=== PATIENT | female | born 1945 | race Caucasian/White ===

== ENCOUNTER 2017-11-29 20:26 | Inpatient (IN) | payer BC ==
[~2017-11-29] VITALS: Ht 157.5 cm; Wt 44.5 kg
[2017-11-30] MEDS ORDERED: BUPROPION XL300 MG ORAL (03:46)
[2017-11-30] MEDS ORDERED: TRAMADOL HCL50 MG ORAL (03:46)
[2017-11-30] MEDS ORDERED: LISINOPRIL40 MG ORAL (03:46)
[2017-11-30] MEDS ORDERED: ZOCOR20 MG ORAL (03:46)
[2017-11-30] MEDS ORDERED: ASPIRIN81 MG ORAL (03:46)
[2017-11-30] MEDS ORDERED: NORMODYNE100 MG ORAL (03:46)
[2017-11-30] MEDS ORDERED: CLONAZEPAM1 MG PO (03:46)
[2017-11-30] MEDS ORDERED: VESICARE5 MG ORAL (03:46)
[2017-11-30 04:00] VITALS: BP 119/66
[2017-11-30] MEDS ORDERED: traMADol 50mg tab ORAL PRN (04:45)
[2017-11-30 07:46] LABS: BASOPHILS % (AUTO) 0.9 % (0.0-2.0); EOSINOPHILS % (AUTO) 2.8 % (0.0-3.0); HEMATOCRIT 33.5 % (37.0-47.0); HEMOGLOBIN 11.5 G/DL (12.0-16.0); LYMPHOCYTES % (AUTO) 21.7 % (20.0-45.0); MEAN CORPUSCULAR VOLUME 89 FL (80-99); MONOCYTES % (AUTO) 12.1 % (1.0-10.0); NEUTROPHILS % (AUTO) 62.5 % (45.0-75.0); PLATELET COUNT 217 K/UL (150-450); RED BLOOD COUNT 3.74 M/UL (4.20-5.40); RED CELL DISTRIBUTION WIDTH 12.1 % (11.6-14.8); WHITE BLOOD COUNT 4.6 K/UL (4.8-10.8)
[2017-11-30 08:00] VITALS: BP 107/65
[2017-11-30 08:13] LABS: ALANINE AMINOTRANSFERASE 25 U/L (12-78); ALBUMIN 3.4 G/DL (3.4-5.0); ALBUMIN/GLOBULIN RATIO 1.2 (1.0-2.7); ALKALINE PHOSPHATASE 46 U/L (46-116); ANION GAP 6 mmol/L (5-15); ASPARTATE AMINO TRANSFERASE 21 U/L (15-37); BILIRUBIN,TOTAL 0.2 MG/DL (0.2-1.0); BLOOD UREA NITROGEN 12 mg/dL (7-18); CALCIUM 8.5 MG/DL (8.5-10.1); CARBON DIOXIDE 26 MMOL/L (21-32); CHLORIDE 101 MMOL/L (98-107); CHOLESTEROL 155 MG/DL (< 200); CREATININE 0.8 MG/DL (0.55-1.30); HDL CHOLESTEROL 81 MG/DL (40-60); POTASSIUM 3.7 MMOL/L (3.5-5.1); SODIUM 133 MMOL/L (136-145); TRIGLYCERIDES 21 MG/DL (30-150)
[2017-11-30 08:14] LABS: PHOSPHORUS 3.2 MG/DL (2.5-4.9)
[2017-11-30] MEDS: Aspirin Baby 81mg ORAL SCH (08:19)
[2017-11-30] MEDS: BuPROPion XL 300mg tab ORAL SCH (08:19)
[2017-11-30] MEDS ORDERED: Lisinopril 20mg tab ORAL SCH (09:00)
--- NOTE | 2017-11-30 10:22 | Consultation ---
History of Present Illness General Date patient seen: Nov 30, 2017 Reason for Consultation: inpatient management Present Illness HPI 72 year old female with hx of HTN, depression was taken to [facility] with CC of dizziness and presyncopal episode. She had a negative Ct of head [place] [facility] and [place] [facility] Pt is awake and asymptomatic now and remembers exactly what happened to her. Allergies: Coded Allergies: MORPHINE (Verified Allergy, Unknown, 11/30/17) Medication History Scheduled Aspirin* (Aspirin*), 81 MG ORAL DAILY, (Reported) Bupropion Hcl* (Wellbutrin*), 300 MG ORAL DAILY, (Reported) Labetalol HCl (Labetalol HCl), 100 MG ORAL EVERY 12 HOURS, (Reported) Lisinopril* (Lisinopril*), 40 MG ORAL DAILY, (Reported) Simvastatin (Zocor), 20 MG ORAL BEDTIME, (Reported) Solifenacin Succinate* (Vesicare*), 5 MG ORAL DAILY, (Reported) Scheduled PRN Tramadol Hcl* (Ultram*), 50 MG ORAL Q6H PRN for For Pain, (Reported) Miscellaneous Medications Clonazepam (Clonazepam), 1 MG PO, (Reported) Patient History Healthcare decision maker Daughter Shaniqua Resuscitation status Full Code Advanced Directive on File No Past Medical/Surgical History Past Medical/Surgical History: (1) Depression (2) History of hypertension Review of Systems All Other Systems: negative except mentioned in HPI Physical Exam General Appearance: WD/WN Lines, tubes and drains: peripheral HEENT: normocephalic Neck: non-tender, normal alignment, limited range of motion Respiratory/Chest: chest wall non-tender, lungs clear Cardiovascular/Chest: normal peripheral pulses, normal rate Abdomen: normal bowel sounds, non tender Genitourinary/Rectal: normal genital exam Extremities: normal range of motion Last 24 Hour Vital Signs Date Time Temp Pulse Resp B/P (MAP) Pulse Ox O2 Delivery O2 Flow Rate FiO2 11/30/17 08:19 107/65 11/30/17 08:19 73 107/65 11/30/17 08:00 98.8 73 18 107/65 (79) 96 98.8 11/30/17 04:00 68 11/30/17 04:00 97.7 62 20 119/66 (83) 95 97.7 11/30/17 02:49 Room Air Intake and Output 11/29/17 11/30/17 19:00 07:00 # Voids 3 Laboratory Tests Test 11/30/17 07:05 White Blood Count 4.6 K/UL (4.8-10.8) L Red Blood Count 3.74 M/UL (4.20-5.40) L Hemoglobin 11.5 G/DL (12.0-16.0) L Hematocrit 33.5 % (37.0-47.0) L Mean Corpuscular Volume 89 FL (80-99) Mean Corpuscular Hemoglobin 30.7 PG (27.0-31.0) Mean Corpuscular Hemoglobin Concent 34.3 G/DL (32.0-36.0) Red Cell Distribution Width 12.1 % (11.6-14.8) Platelet Count 217 K/UL (150-450) Mean Platelet Volume 7.1 FL (6.5-10.1) Neutrophils (%) (Auto) 62.5 % (45.0-75.0) Lymphocytes (%) (Auto) 21.7 % (20.0-45.0) Monocytes (%) (Auto) 12.1 % (1.0-10.0) H Eosinophils (%) (Auto) 2.8 % (0.0-3.0) Basophils (%) (Auto) 0.9 % (0.0-2.0) Sodium Level 133 MMOL/L (136-145) L Potassium Level 3.7 MMOL/L (3.5-5.1) Chloride Level 101 MMOL/L (98-107) Carbon Dioxide Level 26 MMOL/L (21-32) Anion Gap 6 mmol/L (5-15) Blood Urea Nitrogen 12 mg/dL (7-18) Creatinine 0.8 MG/DL (0.55-1.30) Estimat Glomerular Filtration Rate > 60 mL/min (>60) Glucose Level 85 MG/DL (74-106) Calcium Level 8.5 MG/DL (8.5-10.1) Phosphorus Level 3.2 MG/DL (2.5-4.9) Magnesium Level 1.9 MG/DL (1.8-2.4) Total Bilirubin 0.2 MG/DL (0.2-1.0) Aspartate Amino Transf (AST/SGOT) 21 U/L (15-37) Alanine Aminotransferase (ALT/SGPT) 25 U/L (12-78) Alkaline Phosphatase 46 U/L (46-116) Troponin I 0.028 ng/mL (0.000-0.056) Total Protein 6.2 G/DL (6.4-8.2) L Albumin 3.4 G/DL (3.4-5.0) Globulin 2.8 g/dL Albumin/Globulin Ratio 1.2 (1.0-2.7) Triglycerides Level 21 MG/DL (30-150) L Cholesterol Level 155 MG/DL (< 200) LDL Cholesterol 67 mg/dL (<100) HDL Cholesterol 81 MG/DL (40-60) H Cholesterol/HDL Ratio 1.9 (3.3-4.4) L Height (Feet): 5 Height (Inches): 2.00 Weight (Pounds): 98 Medications Current Medications Medications (Trade) Dose Ordered Sig/Gabriela Route PRN Reason Start Time Stop Time Status Last Admin Dose Admin Acetaminophen (Tylenol) 650 mg Q6H PRN ORAL Mild Pain/Temp > 100.5 11/30/17 03:30 12/30/17 03:29 Aspirin (ASA) 81 mg DAILY ORAL 11/30/17 09:00 12/30/17 08:59 11/30/17 08:19 Atorvastatin Calcium (Lipitor) 10 mg BEDTIME ORAL 11/30/17 21:00 12/30/17 20:59 Bupropion HCl (Wellbutrin XL) 300 mg DAILY ORAL 11/30/17 09:00 12/30/17 08:59 11/30/17 08:19 Clonazepam (KlonoPIN) 1 mg PRN ORAL 11/30/17 04:45 12/07/17 04:44 UNV Heparin Sodium (Porcine) (Heparin 5000 units/ml) 5,000 units EVERY 12 HOURS SUBQ 11/30/17 09:00 12/30/17 08:59 UNV Labetalol HCl (Normodyne) 100 mg EVERY 12 HOURS ORAL 11/30/17 09:00 12/30/17 08:59 11/30/17 08:19 Lisinopril (Prinivil) 40 mg DAILY ORAL 11/30/17 09:00 12/30/17 08:59 11/30/17 08:19 Ondansetron HCl (Zofran) 4 mg Q4H PRN IVP Nausea & Vomiting 11/30/17 03:30 12/30/17 03:29 Sodium Chloride 1,000 ml @ 50 mls/hr Q20H IV 11/30/17 04:00 12/01/17 03:59 11/30/17 04:00 Solifenacin (Vesicare) 5 mg DAILY ORAL 11/30/17 09:00 12/30/17 08:59 11/30/17 08:19 Tramadol HCl (Ultram) 50 mg Q6H PRN ORAL For Pain 11/30/17 04:45 12/07/17 04:44 Assessment/Plan Problem List: (1) Acute encephalopathy ICD Codes: G93.40 - Encephalopathy, unspecified SNOMED: 24251069, 296249775 (2) TIA (transient ischemic attack) ICD Codes: G45.9 - Transient cerebral ischemic attack, unspecified SNOMED: 767717120 (3) Depression ICD Codes: F32.9 - Major depressive disorder, single episode, unspecified SNOMED: 50319162 (4) History of hypertension ICD Codes: Z86.79 - Personal history of other diseases of the circulatory system SNOMED: 351939793 Assessment/Plan echo doppler of carotid artery Neuro evaluation monitor BP continue antidepressants. Jose Oropeza MD Nov 30, 2017 10:22
[2017-11-30] MEDS: Heparin 5000 units/ml inj SUBQ SCH ×2 (11:34→20:52)
--- NOTE | 2017-11-30 11:35 | History & Physical ---
History and Physical History & Physicial Dictated for Int Med-Dr Alexandra [id number]. Fidel Ybarra MD Nov 30, 2017 11:35
[2017-11-30 12:00] VITALS: BP 101/62
--- NOTE | 2017-11-30 14:26 | Consultation ---
Consult Note Consult Note NEUROLOGY CONSULTATION: Full note dictated #[id number] 72 y/o, RH, CF with PH of kyphoscoliosis of the spine, neck dystonia - treated with BoTox, HTN, DL, breast cancer treated with bilateral mastectomy and chemotherapy numerous years ago. About 1.5 months ago she had an episode of dizziness, lightheadedness, slurring of speech, and unsteadiness on her feet lasting ~ 1.5 H. At that time the only abnormality discovered was that she was hyponatremic. Then on 11/29/17 she was at work and had not had her lunch but has been consuming a lot of sodas. At ~ 2 PM she started to feel dizzy, lightheaded, had slurring of speech, and unsteadiness on her feet when she tried to walk. The paramedics were called in and she was taken to [place] where a brain CT was done and was normal. She was told that her sodium was low. ON EXAM: KS curve of spine. Diminished ankle jerks Rest of exam normal. IMPRESSION: Possible near syncope due to intravascular depletion. Less likely to be TIA. REC: 1. W/U for CVD. 2. Carotid Duplex. 3. MRI of brain 4. Correct hyponatremia and anemia. 5. Continue ASA/Statin/BP control. 6. Observe. Zen Monzon M.D., M.S.P.H. ZEN MONZON Nov 30, 2017 14:26
[2017-11-30 16:00] VITALS: BP 98/61
[2017-11-30 20:00] VITALS: BP 135/86
[2017-12-01] VITALS: BP 104/61
[2017-12-01 04:00] VITALS: BP 120/70
[2017-12-01 07:49] LABS: BASOPHILS % (AUTO) 0.9 % (0.0-2.0); EOSINOPHILS % (AUTO) 2.4 % (0.0-3.0); HEMATOCRIT 34.8 % (37.0-47.0); HEMOGLOBIN 11.8 G/DL (12.0-16.0); LYMPHOCYTES % (AUTO) 17.8 % (20.0-45.0); MEAN CORPUSCULAR VOLUME 90 FL (80-99); MONOCYTES % (AUTO) 9.6 % (1.0-10.0); NEUTROPHILS % (AUTO) 69.3 % (45.0-75.0); PLATELET COUNT 224 K/UL (150-450); RED BLOOD COUNT 3.86 M/UL (4.20-5.40); RED CELL DISTRIBUTION WIDTH 12.1 % (11.6-14.8); WHITE BLOOD COUNT 6.6 K/UL (4.8-10.8)
[2017-12-01 08:00] VITALS: BP 132/69
[2017-12-01 08:06] LABS: ANION GAP 7 mmol/L (5-15); BLOOD UREA NITROGEN 16 mg/dL (7-18); CALCIUM 9.3 MG/DL (8.5-10.1); CARBON DIOXIDE 25 MMOL/L (21-32); CHLORIDE 100 MMOL/L (98-107); CREATININE 0.8 MG/DL (0.55-1.30); POTASSIUM 4.1 MMOL/L (3.5-5.1); SODIUM 132 MMOL/L (136-145)
[2017-12-01] MEDS: Aspirin Baby 81mg ORAL SCH (08:43)
[2017-12-01] MEDS: BuPROPion XL 300mg tab ORAL SCH (08:44)
[2017-12-01] MEDS: Heparin 5000 units/ml inj SUBQ SCH (08:50)
[2017-12-01] MEDS ORDERED: Lisinopril 20mg tab ORAL SCH ×2 (09:00→21:00)
[2017-12-01 12:00] VITALS: BP 109/62
--- NOTE | 2017-12-01 13:26 | Pulmonology Progress Note ---
Assessment/Plan Problems: (1) Acute encephalopathy (2) TIA (transient ischemic attack) (3) Depression (4) History of hypertension Assessment/Plan no new complains BP controlled neuro saw the pt all tests so far negative. Subjective ROS Limited/Unobtainable: No Constitutional: Reports: no symptoms HEENT: Repors: no symptoms Respiratory: Reports: no symptoms Allergies: Coded Allergies: MORPHINE (Verified Allergy, Unknown, 11/30/17) Objective Last 24 Hour Vital Signs Date Time Temp Pulse Resp B/P (MAP) Pulse Ox O2 Delivery O2 Flow Rate FiO2 12/01/17 12:00 63 12/01/17 12:00 98.0 66 18 109/62 (78) 97 98.0 12/01/17 09:00 Room Air 12/01/17 08:47 132/69 12/01/17 08:44 69 132/61 12/01/17 08:00 71 12/01/17 08:00 98.4 69 16 132/69 (90) 96 98.4 12/01/17 04:00 97.2 68 21 120/70 (87) 97 97.2 12/01/17 04:00 67 12/01/17 00:00 65 12/01/17 00:00 97.6 67 19 104/61 (75) 97 97.6 11/30/17 21:00 Room Air 11/30/17 20:50 80 135/86 11/30/17 20:00 97.8 80 23 135/86 (102) 97 97.8 11/30/17 20:00 70 11/30/17 16:00 98.1 65 18 98/61 (73) 96 98.1 11/30/17 16:00 68 Intake and Output 11/30/17 12/01/17 19:00 07:00 Intake Total 360 ml Balance 360 ml Intake Oral 360 ml # Voids 3 2 General Appearance: WD/WN HEENT: atraumatic, anicteric Respiratory/Chest: chest wall non-tender, lungs clear Breasts: no masses Cardiovascular: normal rate Abdomen: normal bowel sounds, soft, non tender Extremities: no cyanosis Skin: no rash Laboratory Tests 11/30/17 15:24: Erythrocyte Sedimentation Rate 3, Hemoglobin A1c 5.5, Vitamin B12 Level 452, Vitamin D 25-Hydroxy [Pending], 25-Hydroxy Vitamin D2 [Pending], 25-Hydroxy Vitamin D3 [Pending], Folate 15.1, Thyroid Stimulating Hormone (TSH) 3.150, Rapid Plasma Reagin [Pending] 11/30/17 19:40: Urine Opiates Screen Negative, Urine Barbiturates Screen Negative, Phencyclidine (PCP) Screen Negative, Urine Amphetamines Screen Negative, Urine Benzodiazepines Screen Negative, Urine Cocaine Screen Negative, Urine Marijuana (THC) Screen Negative 12/01/17 06:15: White Blood Count 6.6, Red Blood Count 3.86L, Hemoglobin 11.8L, Hematocrit 34.8L , Mean Corpuscular Volume 90, Mean Corpuscular Hemoglobin 30.6, Mean Corpuscular Hemoglobin Concent 33.9, Red Cell Distribution Width 12.1, Platelet Count 224, Mean Platelet Volume 6.6, Neutrophils (%) (Auto) 69.3, Lymphocytes (% ) (Auto) 17.8L, Monocytes (%) (Auto) 9.6, Eosinophils (%) (Auto) 2.4, Basophils (%) (Auto) 0.9, Sodium Level 132L, Potassium Level 4.1, Chloride Level 100, Carbon Dioxide Level 25, Anion Gap 7, Blood Urea Nitrogen 16, Creatinine 0.8, Estimat Glomerular Filtration Rate > 60, Glucose Level 91, Calcium Level 9.3 Current Medications Medications (Trade) Dose Ordered Sig/Gabriela Route PRN Reason Start Time Stop Time Status Last Admin Dose Admin Acetaminophen (Tylenol) 650 mg Q6H PRN ORAL Mild Pain/Temp > 100.5 11/30/17 03:30 12/30/17 03:29 Aspirin (ASA) 81 mg DAILY ORAL 11/30/17 09:00 12/30/17 08:59 12/01/17 08:43 Atorvastatin Calcium (Lipitor) 10 mg BEDTIME ORAL 11/30/17 21:00 12/30/17 20:59 11/30/17 20:50 Bupropion HCl (Wellbutrin XL) 300 mg DAILY ORAL 11/30/17 09:00 12/30/17 08:59 12/01/17 08:44 Clonazepam (KlonoPIN) 1 mg Q12HR ORAL 11/30/17 21:00 12/07/17 20:59 12/01/17 08:43 Heparin Sodium (Porcine) (Heparin 5000 units/ml) 5,000 units EVERY 12 HOURS SUBQ 11/30/17 11:00 12/30/17 10:59 11/30/17 20:52 Labetalol HCl (Normodyne) 100 mg EVERY 12 HOURS ORAL 11/30/17 09:00 12/30/17 08:59 12/01/17 08:44 Lisinopril (Prinivil) 40 mg Q12H ORAL 12/01/17 09:00 12/31/17 08:59 12/01/17 08:47 Ondansetron HCl (Zofran) 4 mg Q4H PRN IVP Nausea & Vomiting 11/30/17 03:30 12/30/17 03:29 Solifenacin (Vesicare) 5 mg DAILY ORAL 11/30/17 09:00 12/30/17 08:59 12/01/17 08:43 Tramadol HCl (Ultram) 50 mg Q6H PRN ORAL For Pain 11/30/17 04:45 12/07/17 04:44 Jose Oropeza MD Dec 01, 2017 13:26
--- NOTE | 2017-12-01 13:44 | Consultation ---
Consult Note Consult Note [facility] NEUROLOGY FOLLOW-UP PROGRESS NOTE December 01, 2017 INTERIM HISTORY: Ms. Anthony feels very well. She slept relatively well last night. The mind is clear. The strength is excellent. She denies any new neurologic symptoms. She specifically denies any weakness, numbness, problems with speech, problems with vision, problems with memory or other neurologic symptoms. She specifically denies any weakness on one side or the other, numbness on one side or the other, problems with speech, problems with language, problems with vision, or problems with memory. NEUROLOGIC REVIEW OF SYSTEMS: Benign. PHYSICAL EXAMINATION: GENERAL: She is a well-developed, well-nourished, lady, lying in bed, in no acute distress. HEAD: Normocephalic and atraumatic NECK: No neck rigidity was observed. EENT: Benign. NEUROLOGICAL EXAMINATION: MENTAL STATUS EXAMINATION: She was awake and alert. She was oriented to person, place, and time. She was able to recall 3/3 words immediately, and could remember them in 1 minute and 3 minutes. She was able to remember Presidents Trump through Edwards Senior. Her mathematical skills were good Her visuospatial function was good. SPEECH: She had no dysarthria. LANGUAGE: She had no aphasia. CRANIAL NERVE EXAMINATION: II: The visual montero were intact on confrontation testing. III, IV & : The external ocular movements were full, and the pupils 3 mm in diameter, equal, round, regular, and reactive to light. V: She had normal facial sensations, and the temporales, masseters, and pterygoids functioned normally. VII: She had normal facial expressions, and no facial asymmetry. VIII: She was able to hear well bilaterally and had no nystagmus. IX: The palate moved symmetrically on phonation. X: She had no hoarseness of voice. XI: The sternocleidomastoids and trapezii functioned normally. XII: The tongue was in the midline without any fasciculations or atrophy. MOTOR SYSTEM: The tone was normal in all 4 extremities. Examination of muscle mass revealed no focal wasting. Examination of power revealed G 5/5 power. SENSORY EXAMINATION: She had intact sensations to pinprick, light touch, and graphesthesia. COORDINATION: She performed well on ltgdby-[id number] and mmnt-ev-ehup testing. REFLEXES: 2+ and bilaterally symmetrical at the biceps, triceps, brachioradialis, and knees. Trace+ at both ankles. The plantar responses were flexor bilaterally. STANCE: She stood up independently. GAIT: She walked well independently ABNORMAL MOVEMENTS: None. DIAGNOSTIC IMPRESSION: 1. Ms. Jenni Anthony is a 72-year-old, right-handed, lady, with a past history of of kyphoscoliosis of the spine, neck dystonia - treated with BoTox, hypertension, dyslipidemia, breast cancer treated with bilateral mastectomy and chemotherapy numerous years ago. About 1.5 months ago she had an episode of dizziness, lightheadedness, slurring of speech, and unsteadiness on her feet lasting ~ 1.5 hours. At that time the only abnormality discovered was that she was hyponatremic. 2. Then on 11/29/17 she was at work and had not had her lunch but has been consuming a lot of sodas. At ~ 2 PM she started to feel dizzy, lightheaded, had slurring of speech, and unsteadiness on her feet when she tried to walk. The paramedics were called in and she was taken to [place] where a brain CT was done and was normal. She was told that her sodium was low. 3. She feels well today. She slept relatively well last night. The mind is clear. The strength is excellent. She denies any new neurologic symptoms. She specifically denies any dizziness, lightheadedness slurring of speech, or unsteadiness on her feet when she walks. 4. On neurologic examination at this time she has a kyphoscoliotic curve of the spine, diminished ankle jerks, but the rest of exam is normal. 5. Laboratory data obtained thus far are benign except for hyponatremia and mild anemia. 6. The Carotid duplex has been done but the report is unavailable. 7 The Echocardiogram revealed no cariogenic embolic source. 8. The patient most probably had a near syncopal episode due to intravascular depletion. Less likely to be TIA. RECOMMENDATIONS: 1. Continue present management. 2. Keep well hydrated with fluids and electrolytes. 3. Correct hyponatremia. 4. Follow up with personal Neurologist. (This was a complex neurologic follow-up. It entailed a detailed interval history, a complete and detailed neurologic examination, and decision making of high complexity. In addition 40 minutes were spent with the patient and on the unit that the patient was on, coordinating the patient's neurologic care). Zen Smith M.D., M.S.P.H. Neurologist & Clinical Neurophysiologist ZEN SMITH Dec 01, 2017 13:44
--- NOTE | 2017-12-01 14:32 | Consultation ---
Consult Note Consult Note asked to eval for low Na admitted for near syncope Assessment/Plan chart reviewed preliminary urine and blood tests ordered BP meds adjusted complete note to follow after those results available Dmitriy Carter MD Dec 01, 2017 14:32
--- NOTE | 2017-12-01 14:32 | Internal Med Progress Note ---
Subjective Date of Service: Dec 01, 2017 Physician Name Fidel Ybarra Attending Physician Henry Alexandra MD Current Medications Medications (Trade) Dose Ordered Sig/Gabriela Route PRN Reason Start Time Stop Time Status Last Admin Dose Admin Acetaminophen (Tylenol) 650 mg Q6H PRN ORAL Mild Pain/Temp > 100.5 11/30/17 03:30 12/30/17 03:29 Aspirin (ASA) 81 mg DAILY ORAL 11/30/17 09:00 12/30/17 08:59 12/01/17 08:43 Atorvastatin Calcium (Lipitor) 10 mg BEDTIME ORAL 11/30/17 21:00 12/30/17 20:59 11/30/17 20:50 Bupropion HCl (Wellbutrin XL) 300 mg DAILY ORAL 11/30/17 09:00 12/30/17 08:59 12/01/17 08:44 Clonazepam (KlonoPIN) 1 mg Q12HR ORAL 11/30/17 21:00 12/07/17 20:59 12/01/17 08:43 Heparin Sodium (Porcine) (Heparin 5000 units/ml) 5,000 units EVERY 12 HOURS SUBQ 11/30/17 11:00 12/30/17 10:59 11/30/17 20:52 Labetalol HCl (Normodyne) 100 mg EVERY 12 HOURS ORAL 11/30/17 09:00 12/30/17 08:59 12/01/17 08:44 Lisinopril (Prinivil) 40 mg Q12H ORAL 12/01/17 09:00 12/31/17 08:59 12/01/17 08:47 Ondansetron HCl (Zofran) 4 mg Q4H PRN IVP Nausea & Vomiting 11/30/17 03:30 12/30/17 03:29 Solifenacin (Vesicare) 5 mg DAILY ORAL 11/30/17 09:00 12/30/17 08:59 12/01/17 08:43 Tramadol HCl (Ultram) 50 mg Q6H PRN ORAL For Pain 11/30/17 04:45 12/07/17 04:44 Allergies: Coded Allergies: MORPHINE (Verified Allergy, Unknown, 11/30/17) ROS Limited/Unobtainable: No Constitutional: Reports: no symptoms HEENT: Reports: no symptoms Cardiovascular: Reports: no symptoms Respiratory: Reports: no symptoms Gastrointestinal/Abdominal: Reports: no symptoms Genitourinary: Reports: no symptoms Neurologic/Psychiatric: Reports: no symptoms Subjective 72 YO F admitted with slurred speech and right weakness. Cover for Herb Aguilar-Dr Alexandra Objective Last Vital Signs Date Time Temp Pulse Resp B/P (MAP) Pulse Ox O2 Delivery O2 Flow Rate FiO2 12/01/17 12:00 63 12/01/17 12:00 98.0 18 109/62 (78) 97 98.0 12/01/17 09:00 Room Air General Appearance: WD/WN, no apparent distress, alert EENT: PERRL/EOMI, normal ENT inspection, TMs normal Neck: non-tender, normal alignment, supple, normal inspection Cardiovascular: normal peripheral pulses, normal rate, regular rhythm, no gallop/murmur, no JVD Respiratory/Chest: chest wall non-tender, lungs clear, normal breath sounds, no respiratory distress, no accessory muscle use Abdomen: normal bowel sounds, non tender, soft, no organomegaly, no mass Extremities: normal range of motion, non-tender Neurologic: lining cleaner II-XII grossly normal, no motor/sensory deficits Skin: normal pigmentation, warm/dry Laboratory Tests Test 11/30/17 15:24 11/30/17 19:40 12/01/17 06:15 Erythrocyte Sedimentation Rate 3 MM/HR (0-30) Hemoglobin A1c 5.5 % (4.3-6.0) Vitamin B12 Level 452 PG/ML (193-986) Vitamin D 25-Hydroxy Pending 25-Hydroxy Vitamin D2 Pending 25-Hydroxy Vitamin D3 Pending Folate 15.1 NG/ML (8.6-58.9) Thyroid Stimulating Hormone (TSH) 3.150 uiU/mL (0.358-3.740) Rapid Plasma Reagin Pending Urine Opiates Screen Negative (NEGATIVE) Urine Barbiturates Screen Negative (NEGATIVE) Phencyclidine (PCP) Screen Negative (NEGATIVE) Urine Amphetamines Screen Negative (NEGATIVE) Urine Benzodiazepines Screen Negative (NEGATIVE) Urine Cocaine Screen Negative (NEGATIVE) Urine Marijuana (THC) Screen Negative (NEGATIVE) White Blood Count 6.6 K/UL (4.8-10.8) Red Blood Count 3.86 M/UL (4.20-5.40) L Hemoglobin 11.8 G/DL (12.0-16.0) L Hematocrit 34.8 % (37.0-47.0) L Mean Corpuscular Volume 90 FL (80-99) Mean Corpuscular Hemoglobin 30.6 PG (27.0-31.0) Mean Corpuscular Hemoglobin Concent 33.9 G/DL (32.0-36.0) Red Cell Distribution Width 12.1 % (11.6-14.8) Platelet Count 224 K/UL (150-450) Mean Platelet Volume 6.6 FL (6.5-10.1) Neutrophils (%) (Auto) 69.3 % (45.0-75.0) Lymphocytes (%) (Auto) 17.8 % (20.0-45.0) L Monocytes (%) (Auto) 9.6 % (1.0-10.0) Eosinophils (%) (Auto) 2.4 % (0.0-3.0) Basophils (%) (Auto) 0.9 % (0.0-2.0) Sodium Level 132 MMOL/L (136-145) L Potassium Level 4.1 MMOL/L (3.5-5.1) Chloride Level 100 MMOL/L (98-107) Carbon Dioxide Level 25 MMOL/L (21-32) Anion Gap 7 mmol/L (5-15) Blood Urea Nitrogen 16 mg/dL (7-18) Creatinine 0.8 MG/DL (0.55-1.30) Estimat Glomerular Filtration Rate > 60 mL/min (>60) Glucose Level 91 MG/DL (74-106) Calcium Level 9.3 MG/DL (8.5-10.1) Intake and Output 11/30/17 12/01/17 19:00 07:00 Intake Total 360 ml Balance 360 ml Intake Oral 360 ml # Voids 3 2 Assessment/Plan Problem List: (1) Hypertension Assessment & Plan: Continue lisinopril and labetolol (2) Hyponatremia Assessment & Plan: Resolved (3) Torticollis, spasmodic (4) TIA (transient ischemic attack) Assessment & Plan: Resolved-see neuro note. Status: stable Assessment/Plan D/C home today. F/U with private neurologist-Dr Souleymane Mcghee Fidel Ybarra MD Dec 01, 2017 14:32
--- NOTE | 2017-12-02 12:45 | Discharge Summary ---
Discharge Summary Discharge Summary _ DATE OF ADMISSION: 11/30/2017 DATE OF DISCHARGE: 12/01/2017 REASON FOR ADMISSION: 72 years old female with past medical history significant for hypertension, depression, history of breast cancer , status post bilateral mastectomy, was taken to [facility] with chief complaint of dizziness and presyncopal episode. CT of the head at [place] revealed no acute intracranial pathology. Due to insurance, patient was transferred to [facility] for further management . CONSULTANTS: neurologist Dr. Monzon pulmonary Dr. Oropeza core analyst Dr. Carter [facility] COURSE: Patient admitted to monitored floor. Neurology, pulmonology nephrology consults were requested. Echocardiogram revealed normal left ventricular chamber size, systolic function and wall motion. Left ventricular ejection fraction estimated to be 55-60%. No evidence of pericardial or pleural effusion. Mild left ventricular hypertrophy. Right ventricular systolic pressure of 21. Patient started on IV hydration. Troponin was negative. EKG and telemetry revealed no acute ischemic changes. Blood pressure was closely monitored and remained stable. Neurologist closely followed. Urine toxicology screen was negative. Neurological exam showed kyphoscoliotic curve of the spine and diminished ankle jerks, but the rest of exam was normal. Echocardiogram revealed no cardiogenic embolic source. Carotid Duplex was stable. no evidence of stenosis. Blood pressure was managed with current medication regimen and remained stable. Patient was on aspirin and statin . Lipid panel was stable. DVT prophylaxis provided Patient most probably had near syncopal episode due to intravascular volume depletion and less likely to be TIA as per neurologist. Neurologist recommended keep well-hydrated with IV fluids and electrolytes, continue present management and follow-up with personal neurologist as outpatient. Supplemental oxygen was on board as needed to keep pulse oximetry above 92%. Pulse oximetry was stable on room air. Poultry Cleaner seen and evaluated patient. Urine studies were ordered . Urinalysis was negative for UTI. Renal parameters and electrolytes were closely monitored. Electrolytes were corrected as needed. Nephrotoxics were avoided. Hyponatremia mild. Recommended outpatient monitoring with primary care provider. Antidepressive medication (Wellbutrin ) resumed . Hemoglobin and hematocrit were closely monitored with goal to keep hemoglobin above 7. Prior to discharge hemoglobin 11.8 hematocrit 34.8. Patient clinically stabilized and was ready for discharge home Due to rapid and unexpected improvement in patient's condition, the patient was discharged in one day. FINAL DIAGNOSES: acute encephalopathy - resolved near syncope, likely secondary to intravascular volume depletion/dehydration possible TIA history of hypertension depression hyponatremia anemia history of breast CA, status post bilateral mastectomy DISCHARGE MEDICATIONS: See Medication Reconciliation list. DISCHARGE INSTRUCTIONS: Patient was discharged home Follow up with primary care provider in one week. I have been assigned to dictate discharge summary for this account. I was not involved in the patient's management. Mercy Thompson NP Dec 02, 2017 12:45
== END 2017-12-01 14:41 | disposition home or self-care (01) | DRG 69 ==
LOC: 2E 11-30 00:41
DX: G45.9 Transient cerebral ischemic attack, unspecified (principal); G93.40 Encephalopathy, unspecified; I10 Essential (primary) hypertension; F32.9 Major depressive disorder, single episode, unspecified; D64.9 Anemia, unspecified; G24.3 Spasmodic torticollis; E86.0 Dehydration; Z90.13 Acquired absence of bilateral breasts and nipples; Z85.3 Personal history of malignant neoplasm of breast
CPT/HCPCS: 36415; 80048; 80053; 80061; 80307; 82306; 82607; 82746; 83036; 83735; 84100; 84443; 84484; 85025; 85651; 86592; 93306; 93880